=== PATIENT | female | born 1940 | race Caucasian/White ===

== ENCOUNTER → 2016-06-30 | Outpatient (CLI) | payer MEDICARE ==
[~2016-06-30] MED LIST: ACET-1600 PO; CALC1CAP8 PO; DEXT1DRO6 EACHEYE; ERGO500017 PO; FLUT9.9S NS; HYDR12.58 PO; IBUP200C8 PO; LORA10TA37 NS; MOEX15TA2 PO; NAPR220C2 PO; OXYB10TA PO; ROSU5TAB PO
[2016-06-30 12:24] LABS: HEMOGLOBIN 15.1 g/dL (11.7-16.4)
[2016-06-30 12:38] LABS: BLOOD UREA NITROGEN 18 mg/dL (7-18)
[2016-06-30 12:41] LABS: ASPARTATE AMINO TRANSFERASE 13 U/L (15-37)
== END | disposition home or self-care (01) ==
LOC: STAR 10:54
PROVIDERS: ATTEND Orthopaedic Surgery
DX: M17.12 Unilateral primary osteoarthritis, left knee (principal)
CPT/HCPCS: 36415; 80053; 81003; 85025; 87081

== ENCOUNTER 2016-07-10 06:24 | Inpatient (IN) | payer MEDICARE ==
[~2016-07-10] VITALS: Ht 172.7 cm; Wt 84.1 kg
[2016-07-10] MEDS ORDERED: TRANEXAMIC ACID 100 MG/ML, 10ML ONE (06:46)
[2016-07-10] MEDS ORDERED: EPINEPHRINE 1 MG/ML, 1ML ONE (06:46)
[2016-07-10] MEDS ORDERED: ROPIvacaine/PF 0.2%, 20 ML ONE (06:46)
[2016-07-10] MEDS ORDERED: KETOROLAC 60 MG/2 ML ONE (06:46)
[2016-07-10] MEDS ORDERED: LACTATED RINGERS 1,000 ML IV SCH (07:17)
[2016-07-10] MEDS ORDERED: FENTANYL PF 250 MCG/5ML ONE (08:22)
[2016-07-10] MEDS ORDERED: MIDAZOLAM 1 MG/ML, 2ML ONE (08:23)
[2016-07-10] MEDS ORDERED: BUPIVACAINE/PF-EPI 0.25% 1:200K ONE (09:10)
[2016-07-10] MEDS ORDERED: PROPOFOL 10 MG/ML, 20ML ONE (09:31)
[2016-07-10] MEDS ORDERED: DEXAMETHASONE 4 MG/ML, 1ML ONE (09:31)
[2016-07-10] MEDS ORDERED: PROPOFOL 10 MG/ML, 50ML ONE (09:31)
[2016-07-10] MEDS ORDERED: PHENYLEPHRINE 10 MG/ML ONE (09:31)
[2016-07-10] MEDS ORDERED: ONDANSETRON 2MG/ML, 2ML ONE (09:31)
[2016-07-10] MEDS ORDERED: CEFAZOLIN 1,000 MG ONE (09:31)
[2016-07-10] MEDS ORDERED: MEPERIDINE/PF 25MG/0.5ML IVPush PRN (10:30)
[2016-07-10] MEDS ORDERED: OXYcodone 5 MG/5 ML ORAL.SOL UDC PO PRN (10:30)
[2016-07-10] MEDS ORDERED: LABETALOL 5MG/ML, 20ML IV PRN (10:30)
[2016-07-10] MEDS ORDERED: PROMETHAZINE 25 MG/ML, 1ML IV PRN (10:30)
[2016-07-10] MEDS ORDERED: ONDANSETRON 2MG/ML, 2ML IVPush PRN (10:30)
[2016-07-10] MEDS ORDERED: hydrALAzine 20 MG/ML, 1ML IV PRN (10:30)
[2016-07-10] MEDS ORDERED: FENTANYL PF 100 MCG/2ML IV PRN (10:30)
[2016-07-10] MEDS ORDERED: HYDROmorphone 1 MG/ML, 1ML IV PRN ×2 (10:30→11:30)
[2016-07-10] MEDS ORDERED: ACETAMINOPHEN 325 MG TABLET PO PRN (10:30)
[2016-07-10] MEDS ORDERED: OXYcodone IR 5MG TABLET PO PRN (11:30)
[2016-07-10] MEDS ORDERED: ONDANSETRON 2MG/ML, 2ML IV PRN (11:30)
[2016-07-10] MEDS ORDERED: ZOLPIDEM 5MG TABLET PO PRN (11:30)
[2016-07-10] MEDS ORDERED: ONDANSETRON 4 MG TABLET PO PRN (11:30)
[2016-07-10] MEDS ORDERED: MAGNESIUM HYDROXIDE 8%, 30ML UDC PO PRN (11:30)
[2016-07-10] MEDS ORDERED: PROMETHAZINE 25 MG/ML, 1ML IM PRN (11:30)
[2016-07-10] MEDS ORDERED: PROMETHAZINE 12.5 MG SUPP PR PRN (11:30)
[2016-07-10] MEDS ORDERED: BISACODYL 10 MG SUPP PR PRN (11:30)
[2016-07-10] MEDS ORDERED: ALUMINUM/MAG/SIMETHICONE 30 ML UDC PO PRN (11:30)
[2016-07-10] MEDS ORDERED: ACETAMINOPHEN 650 MG/20.3 ML UDC PO PRN (11:30)
[2016-07-10] MEDS ORDERED: SENNA/DOCUSATE TABLET PO PRN (11:30)
[2016-07-10] MEDS ORDERED: TRANEXAMIC ACID 1,000 MG in SODIUM CHLORIDE 0.9% 100 ML IVPB ONE (11:30)
[2016-07-10] MEDS ORDERED: DIPHENHYDRAMINE 50 MG CAPSULE PO PRN (11:30)
[2016-07-10] MEDS ORDERED: DIAZEPAM 5 MG TABLET PO PRN (11:30)
[2016-07-10] MEDS: HYDROcodone/APAP 10/325 MG TABLET PO SCH ×4 (12:30→23:30)
[2016-07-10] MEDS: TAMSULOSIN 0.4 MG CAP.ER.24H PO SCH (13:56)
[2016-07-10] MEDS: D5%-0.45% NACL 1,000 ML IV SCH ×2 (13:57→19:02)
[2016-07-10] MEDS: CEFAZOLIN PMX 2GM/50ML 50 ML IVPB SCH (18:29)
[2016-07-10] MEDS: ASPIRIN 81 MG TABLET EC PO SCH (18:29)
[2016-07-10 20:00] VITALS: BP 105/52
[2016-07-10] MEDS: DOCUSATE 100 MG CAPSULE PO SCH (21:06)
[2016-07-11 00:26] VITALS: BP 97/52
[2016-07-11] MEDS: CEFAZOLIN PMX 2GM/50ML 50 ML IVPB SCH (02:01)
[2016-07-11] MEDS: D5%-0.45% NACL 1,000 ML IV SCH ×3 (03:02→18:16)
[2016-07-11] MEDS: HYDROcodone/APAP 10/325 MG TABLET PO SCH ×2 (03:30→08:43)
[2016-07-11 04:04] VITALS: BP 87/46
[2016-07-11] MEDS ORDERED: DEXAMETHASONE 4 MG/ML, 1ML IVPush SCH (06:00)
[2016-07-11] MEDS: ASPIRIN 81 MG TABLET EC PO SCH ×2 (06:18→18:15)
[2016-07-11 06:19] LABS: HEMOGLOBIN 11.9 g/dL (11.7-16.4)
[2016-07-11] MEDS: TAMSULOSIN 0.4 MG CAP.ER.24H PO SCH ×2 (08:42→09:00)
[2016-07-11] MEDS: DOCUSATE 100 MG CAPSULE PO SCH ×2 (08:43→20:58)
[2016-07-11] MEDS: MULTIVITAMINS/MINERALS TABLET PO SCH (08:43)
[2016-07-11 09:06] VITALS: BP 102/65
[2016-07-11] MEDS: ARTIFICIAL TEARS OPHTH SOLN 15ML OP SCH ×4 (10:00→22:00)
[2016-07-11] MEDS: KETOROLAC 30 MG/1 ML IV SCH (11:57)
[2016-07-11 15:06] VITALS: BP 117/65
[2016-07-11 19:00] VITALS: BP 117/66
[2016-07-11] MEDS: OXYBUTYNIN CHLORIDE 5 MG TABLET PO SCH ×2 (20:57→20:59)
[2016-07-11] MEDS: HYDROcodone/APAP 10/325 MG TABLET PO PRN (20:58)
[2016-07-11] MEDS: FLUTICASONE NASAL SPRAY 16GM NAS SCH (20:58)
[2016-07-11] MEDS ORDERED: ATORVASTATIN 10 MG TABLET PO SCH (21:00)
[2016-07-12 00:26] VITALS: BP 105/56
[2016-07-12] MEDS: ARTIFICIAL TEARS OPHTH SOLN 15ML OP SCH ×3 (02:00→08:35)
[2016-07-12] MEDS: KETOROLAC 30 MG/1 ML IV SCH ×2 (03:23→11:00)
[2016-07-12] MEDS: D5%-0.45% NACL 1,000 ML IV SCH ×2 (03:26→11:02)
[2016-07-12] MEDS: HYDROcodone/APAP 10/325 MG TABLET PO PRN (03:29)
[2016-07-12 06:06] LABS: HEMOGLOBIN 11.3 g/dL (11.7-16.4)
[2016-07-12] MEDS: ASPIRIN 81 MG TABLET EC PO SCH (06:24)
[2016-07-12 08:25] VITALS: BP 136/78
[2016-07-12] MEDS: OXYBUTYNIN CHLORIDE 5 MG TABLET PO SCH (08:34)
[2016-07-12] MEDS: MULTIVITAMINS/MINERALS TABLET PO SCH (08:34)
[2016-07-12] MEDS: DOCUSATE 100 MG CAPSULE PO SCH (08:34)
[2016-07-12] MEDS: FLUTICASONE NASAL SPRAY 16GM NAS SCH (08:35)
[2016-07-12] MEDS: TAMSULOSIN 0.4 MG CAP.ER.24H PO SCH (08:35)
[2016-07-12] MEDS ORDERED: LISINOPRIL 20 MG TABLET PO SCH (09:00)
[2016-07-12] MEDS ORDERED: HYDROCHLOROTHIAZIDE 12.5 MG CAPSULE PO SCH (09:00)
[2016-07-12] MEDS ORDERED: HYDR-3307 PO (10:26)
[2016-07-12] MEDS ORDERED: ASPI-621 PO (10:27)
[2016-07-12 12:30] VITALS: BP 140/69
== END 2016-07-12 12:45 | disposition home or self-care (01) | DRG 470 ==
LOC: ORIP 06:24 → 4NOR 12:00 → DCLOUNGE 07-12 12:34
PROVIDERS: ADMIT Orthopaedic Surgery; ATTEND Orthopaedic Surgery
PROC: 0SRD0J9 Replacement of Left Knee Joint with Synthetic Substitute, Cemented, Open Approach (ICD-10-PCS; principal; 2016-07-10 09:15)
DX: M17.12 Unilateral primary osteoarthritis, left knee (principal); E78.5 Hyperlipidemia, unspecified; I10 Essential (primary) hypertension; Z88.5 Allergy status to narcotic agent; Z88.8 Allergy status to other drugs, medicaments and biological substances; Z87.891 Personal history of nicotine dependence
CPT/HCPCS: 36415; 85014; 85018; C1713; J0171; J0690; J1100; J1885; J2250; J2405; J2550; J2704; J2795; J3010; C1776; J2370

== ENCOUNTER → 2017-03-16 | Outpatient (CLI) | payer MEDICARE ==
[~2017-03-16] MED LIST changes: +ASPI-621 PO; +HYDR-3307 PO
== END | disposition home or self-care (01) ==
LOC: CFH 10:44
PROVIDERS: ATTEND Internal Medicine
DX: Z12.31 Encounter for screening mammogram for malignant neoplasm of breast (principal); Z85.3 Personal history of malignant neoplasm of breast; Z92.3 Personal history of irradiation; Z90.12 Acquired absence of left breast and nipple
CPT/HCPCS: 77063; G0202

== ENCOUNTER → 2018-06-20 | Outpatient (CLI) | payer MEDICARE ==
[~2018-06-20] MED LIST changes: -ASPI-621 PO; +ASPI81TA45 PO; -HYDR12.58 PO; +HYDROCHLOROTH12.5 MG PO
== END | disposition home or self-care (01) ==
LOC: CFH 10:35
PROVIDERS: ATTEND Physician Assistant
DX: Z12.31 Encounter for screening mammogram for malignant neoplasm of breast (principal); Z85.3 Personal history of malignant neoplasm of breast; Z92.3 Personal history of irradiation; Z87.891 Personal history of nicotine dependence
CPT/HCPCS: 77063; 77067

== ENCOUNTER 2019-01-21 14:28 | Outpatient (CLI) | payer MEDICARE ==
[~2019-01-21 14:28] MED LIST changes: -HYDR-3307 PO; +HYDR-36 PO; -OXYB10TA PO; +OXYB10TA2 PO
== END 2019-01-21 23:59 | disposition home or self-care (01) ==
LOC: CFH 14:28
PROVIDERS: ATTEND Physician Assistant
DX: I08.1 Rheumatic disorders of both mitral and tricuspid valves (principal); I10 Essential (primary) hypertension; E78.5 Hyperlipidemia, unspecified
CPT/HCPCS: 93306

== ENCOUNTER 2019-08-27 10:17 | Outpatient (CLI) | payer MEDICARE ==
[~2019-08-27 10:17] MED LIST changes: +HYDR-3246 PO; -HYDR-36 PO; -OXYB10TA2 PO; +OXYB10TA26 PO
== END 2019-08-27 23:59 | disposition home or self-care (01) ==
LOC: CFH 10:17
PROVIDERS: ATTEND Internal Medicine
DX: Z12.31 Encounter for screening mammogram for malignant neoplasm of breast (principal)
CPT/HCPCS: 77063; 77067

== ENCOUNTER → 2020-01-15 | Outpatient (CLI) | payer MEDICARE | END | disposition home or self-care (01) | LOC: CFH 09:57 | PROVIDERS: ATTEND Nurse Practitioner Primary Care | DX: Z78.0 Asymptomatic menopausal state (principal) | CPT/HCPCS: 77080 ==

== ENCOUNTER → 2020-08-31 | Outpatient (CLI) | payer MEDICARE ==
[~2020-08-31] MED LIST changes: -HYDR-3246 PO; +HYDR-3248 PO
== END | disposition home or self-care (01) ==
LOC: CFH 09:37
PROVIDERS: ATTEND Internal Medicine
DX: Z12.31 Encounter for screening mammogram for malignant neoplasm of breast (principal)
CPT/HCPCS: 77063; 77067